=== PATIENT | female | born 1970 | race African-American/Black ===

== ENCOUNTER 2017-06-13 21:49 | Emergency (ER) | payer OTHER ==
[2017-06-13 21:57] VITALS: BP 110/79; PULSE 98; TEMP 98.2; BMI 34.0
--- NOTE | 2017-06-13 22:20 | PDOC ---
History of Present Illness - General Chief Complaint: Sore Throat Stated Complaint: ITCHY THROAT/RINGING IN EAR Time Seen by Provider: 06/13/17 22:06 History Source: Patient - History of Present Illness Timing/Duration: reports: other Associated Symptoms: denies: cough, fever/chills, nasal congestion, nasal drainage, sore throat Past History - Past Medical History Allergies/Adverse Reactions: Allergies Allergy/AdvReac Type Severity Reaction Status Date / Time No Known Allergies Allergy Verified 06/13/17 21:57 Home Medications: Ambulatory Orders NK [No Known Home Medication] 06/13/17 Other medical history: denies - Suicide/Smoking/Psychosocial Hx Smoking Status: No Smoking History: Never smoked Number of Cigarettes Smoked Daily: 0 Hx Alcohol Use: Yes (OCCASIONALLY) Substance Use Type: None Review of Systems - Review of Systems Constitutional: No: Chills, Fever HEENTM: Yes: Nose Congestion. No: Throat Pain Respiratory: No: Cough *Physical Exam - Vital Signs Last Vital Signs Temp Pulse Resp BP Pulse Ox 98.2 F 98 H 18 110/79 98 06/13/17 21:54 06/13/17 21:54 06/13/17 21:54 06/13/17 21:54 06/13/17 21:54 - Physical Exam General Appearance: Yes: Appropriately Dressed. No: Apparent Distress HEENT: positive: EOMI, Normal ENT Inspection, Normal Voice, TMs Normal, Pharynx Normal. negative: Scleral Icterus (R), Scleral Icterus (L) Neck: positive: Supple Respiratory/Chest: negative: Respiratory Distress Integumentary: positive: Dry, Warm Neurologic: positive: Fully Oriented, Alert, Normal Mood/Affect Medical Decision Making - Medical Decision Making 06/13/17 22:21 47 yo F, no sig hx, p/w itching to throat and ears x several days w/ ?ringing to L ear. No congestion, cough, f/c. Pt well mariusz and stable w/ unremarkable exam. Unclear etiology of sxs, possibly allergic. Dc w/ benadryl and referral to ENT if sxs persist *DC/Admit/Observation/Transfer Diagnosis at time of Disposition: Throat discomfort - Discharge Dispostion Disposition: HOME Condition at time of disposition: Good - Referrals Referrals: Margarita Sepulveda MD [Primary Care Provider] - Servando Rodriguez MD [Staff Physician] - - Patient Instructions Additional Instructions: The source of your symptoms are unclear at this time as your exam was normal. Symptoms could be secondary to allergy. Take Benadryl as needed for itching and follow-up with Dr. Rodriguez of ENT if symptoms persist
== END 2017-06-13 22:18 | disposition home or self-care (01) ==
LOC: JERFT 21:49
DX: L29.8 Other pruritus (principal)
CPT/HCPCS: 99281-25

== ENCOUNTER 2017-11-09 13:13 | Emergency (ER) | payer OTHER ==
[2017-11-09 13:29] VITALS: BP 113/75; PULSE 74; TEMP 98.7; BMI 36.0
--- NOTE | 2017-11-09 14:02 | PDOC ---
History of Present Illness - General Chief Complaint: Cold Symptoms Stated Complaint: FLU Time Seen by Provider: 11/09/17 13:15 - History of Present Illness Initial Comments: 11/09/17 14:02 Chief complaint: Flu symptoms History of present illness: Flu symptoms for 2-3 days including sore throat, earache, nasal congestion, body aches. No fever/chills, chest pain, shortness of breath, abdominal pain, nausea, vomiting, or diarrhea Review of systems: As above Past medical history: No serious medical or surgical problems past or present. 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 Had the flu vaccine. No tobacco alcohol or nonprescription drugs. Family history noncontributory Physical exam: Alert and oriented well-developed well-nourished no acute distress cooperative Afebrile, vital signs normal HEENT mild nasal congestion, no discharge, ears and throat clear Neck supple without bruit mass or nodes Chest clear with full breath sounds bilaterally, no wheezes rales or rhonchi CV S1 and S2 normal without murmur rub or gallop Abdomen benign Skin clear, no rash, adequate turgor and wet mucous membranes Neurological intact Extremities no CCE Impression: Possible flu, attenuated by flu vaccine Plan: Tamiflu, rest, Tylenol or Motrin, recheck if symptoms worsen. Past History - Past Medical History Allergies/Adverse Reactions: Allergies Allergy/AdvReac Type Severity Reaction Status Date / Time No Known Allergies Allergy Verified 11/09/17 13:21 Home Medications: Ambulatory Orders Oseltamivir Phosphate [Tamiflu] 75 mg PO BID #10 capsule 11/09/17 COPD: No - Suicide/Smoking/Psychosocial Hx Smoking Status: No Smoking History: Never smoked Number of Cigarettes Smoked Daily: 0 Hx Alcohol Use: No Drug/Substance Use Hx: No Substance Use Type: None *Physical Exam - Vital Signs Last Vital Signs Temp Pulse Resp BP Pulse Ox 98.7 F 74 15 113/75 97 11/09/17 13:13 11/09/17 13:13 11/09/17 13:13 11/09/17 13:13 11/09/17 13:13 *DC/Admit/Observation/Transfer Diagnosis at time of Disposition: Viral URI - Discharge Dispostion Disposition: HOME Condition at time of disposition: Stable Admit: No - Prescriptions Prescriptions: Oseltamivir Phosphate [Tamiflu] 75 mg PO BID #10 capsule - Referrals Referrals: Margarita Sepulveda MD [Primary Care Provider] - 2 Days - Patient Instructions Printed Discharge Instructions: DI for Viral Upper Respiratory Infection -- Adult Additional Instructions: Rest, fluids, Tylenol or Advil. Return for recheck if symptoms worse, especially if there is high fever, chest pain, increase cough, or shortness of breath. Otherwise follow-up with primary physician. - Post Discharge Activity Forms/Work/School Notes: Back to Work
== END 2017-11-09 14:08 | disposition home or self-care (01) ==
LOC: FER 13:13
DX: J06.9 Acute upper respiratory infection, unspecified (principal)
CPT/HCPCS: 99282-25

== ENCOUNTER 2017-12-31 19:09 | Emergency (ER) | payer OTHER ==
--- NOTE | 2017-12-31 19:13 | PDOC ---
History of Present Illness - General History Source: Patient Exam Limitations: No Limitations - History of Present Illness Initial Comments: 12/31/17 19:34 A portion of this note was documented by scribe services under my direction. I have reviewed the details of the note, within reason, and agree with the documentation. The case summary and management plan written by me. Assessment and plan: This is a 47 her old female who comes in complaining of 2 days of sore throat. Patient denies any fevers, shortness of breath, cough, congestion or any other symptoms. Patient on exam has an exam that is consistent with a viral pharyngitis as it is no exudate lymphadenopathy or fevers. Patient reassured and told that all she needs a symptomatic relief and discharged home. <Bibiana Wells I - Last Filed: 12/31/17 19:34> - History of Present Illness Initial Comments: 12/31/17 19:48 The patient is a 47 year old female, with no significant past medical history, who presents to the emergency department with, approx 2 days of sore throat, body aches and non productive cough. The patient reports that two days ago she first noticed a bilateral ear discomfort described as a itchy sensation. The patient states that since yesterday she has had the non productive cough, sore throat and body aches. The patient states she visited her uncle recently who is currently sick. She denies recent fevers, chills, headache or dizziness. She denies recent nausea, vomit, diarrhea or constipation. She denies recent dysuria, frequency, urgency or hematuria. She denies recent chest pain or shortness of breath. PAST MEDICAL HISTORY: no significant history PAST SURGICAL HISTORY: no significant history FAMILY HISTORY: no pertinent history SOCIAL HISTORY: Pt lives with family and is employed. MEDICATIONS: reviewed ALLERGIES: As per nursing notes Review of Systems General: No fevers or chills, no weakness, no weight loss HEENT: +Sore throat. +Ear discomfort. No change in vision. CardioVascular: No chest pain or shortness of breath Respiratory: +Non productive cough. No wheezing. Gastrointestinal: no nausea, vomiting, diarrhea or constipation, No rectal bleeding Genitourinary: No dysuria, hematuria, or frequency Musculoskeletal: +Generalized body aches. No neck or back pain. Neurologic: No headache, vertigo, dizziness or loss of consciousness Psychiatric: nor depression Skin: No rashes or easy bruising Endocrine: no increased thirst or abnormal weight change Allergic: no skin or latex allergy All other systems reviewed and normal Physical Exam GENERAL: The patient is awake, alert, and fully oriented, in no acute distress. HEAD: Normal with no signs of trauma. EYES: Pupils equal, round and reactive to light, extraocular movements intact, sclera anicteric, conjunctiva clear. EAR: Tympanic membranes and external ear canals were normal. THROAT: +Mild erythema posterior oropharynx. No lymphadenopathy. No exudates. EXTREMITIES: Normal range of motion, no edema. NEUROLOGICAL: Normal speech, normal gait. PSYCH: Normal mood, normal affect. SKIN: Warm, Dry, normal turgor, no rashes or lesions noted. <Sean Small - Last Filed: 12/31/17 19:56> - General Chief Complaint: Sore Throat Stated Complaint: SORE THROAT Time Seen by Provider: 12/31/17 19:12 Past History - Past Medical History COPD: No - Suicide/Smoking/Psychosocial Hx Smoking Status: No Smoking History: Never smoked Number of Cigarettes Smoked Daily: 0 Hx Alcohol Use: No Drug/Substance Use Hx: No Substance Use Type: None <Bibiana Wells I - Last Filed: 12/31/17 19:34> <Sean Small - Last Filed: 12/31/17 19:56> - Past Medical History Allergies/Adverse Reactions: Allergies Allergy/AdvReac Type Severity Reaction Status Date / Time No Known Allergies Allergy Verified 11/09/17 13:21 Home Medications: Ambulatory Orders Oseltamivir Phosphate [Tamiflu] 75 mg PO BID #10 capsule 11/09/17 *Physical Exam - Vital Signs Last Vital Signs Temp Pulse Resp BP Pulse Ox 98.5 F 75 16 112/72 99 12/31/17 19:09 12/31/17 19:09 12/31/17 19:09 12/31/17 19:09 12/31/17 19:09 <Sean Small - Last Filed: 12/31/17 19:56> *DC/Admit/Observation/Transfer - Discharge Dispostion Admit: No <Bibiana Wells I - Last Filed: 12/31/17 19:34> - Attestations Scribe Attestion: 12/31/17 19:49 Documentation prepared by Saen Small, acting as medical receptionist biller for Bibiana Wells MD. <Sean Small - Last Filed: 12/31/17 19:56> Diagnosis at time of Disposition: Acute viral pharyngitis - Discharge Dispostion Disposition: HOME Condition at time of disposition: Stable - Referrals Referrals: Margarita Sepulveda MD [Primary Care Provider] - - Patient Instructions Printed Discharge Instructions: Viral Pharyngitis Additional Instructions: Tylenol or Motrin as needed for pain or discomfort. Your symptoms are caused by a virus and will run its course. Return to the emergency department immediately with ANY new, persistent or worsening symptoms. Continue any medications as previously prescribed by your physician. You should follow up with your primary doctor as soon as possible regarding today's emergency department visit. . Please make sure your doctor reviews the results of your emergency evaluation. Thank you for coming to the Emergency Department today for your care. It was a pleasure to see you today. Please note that your evaluation is INCOMPLETE until you follow-up with your doctor. - Post Discharge Activity
[2017-12-31 19:22] VITALS: BP 112/72; PULSE 75; TEMP 98.5; BMI 36.0
== END 2017-12-31 19:45 | disposition home or self-care (01) ==
LOC: FER 19:09
DX: J02.8 Acute pharyngitis due to other specified organisms (principal); B97.89 Other viral agents as the cause of diseases classified elsewhere
CPT/HCPCS: 99281-25

== ENCOUNTER 2018-07-29 12:58 | Emergency (ER) | payer OTHER ==
--- NOTE | 2018-07-29 13:24 | PDOC ---
History of Present Illness - General Stated Complaint: DIZZINESS Time Seen by Provider: 07/29/18 13:10 History Source: Patient - History of Present Illness Initial Comments: 07/29/18 15:42 The patient is a 48 year old female with no significant reported PMH who presents to the ED c/o 2 day h/o lightheadedness and associated headache. Headache is global, pressure like, c/w previous headaches. 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 Denies any associated chest pain, shortness of breath, palpitations, nausea. States the lightheadedness persisted and worsened when she was moving around especially bending over @ work. No previous similar episodes. Notes h/o seasonal allergies for which she has been taking OTC Sudafed. 10 point ROS is negative including abdominal pain, nausea/vomiting, diarrhea/ constipation, dysuria/hematuria, numbness/tingling. Allergy: Penicillin (rash) Surgical: none reported Social: denies toxic habits PMD: Dr. Margarita Sepulveda Past History - Past Medical History Allergies/Adverse Reactions: Allergies Allergy/AdvReac Type Severity Reaction Status Date / Time Penicillins Allergy Verified 05/25/18 21:23 Home Medications: Ambulatory Orders NK [No Known Home Medication] 07/29/18 COPD: No - Suicide/Smoking/Psychosocial Hx Smoking Status: No Smoking History: Never smoked Number of Cigarettes Smoked Daily: 0 Hx Alcohol Use: No Drug/Substance Use Hx: No Substance Use Type: None Review of Systems - Review of Systems Constitutional: No: Chills, Fever HEENTM: No: Blurred Vision, Double Vision Cardiac (ROS): Yes: Lightheadedness. No: Chest Pain ABD/GI: No: Constipated, Diarrhea, Nausea, Vomiting : No: Burning, Dysuria *Physical Exam - Physical Exam General Appearance: Yes: Nourished, Obese HEENT: positive: Normal Voice, Hearing Grossly Normal. negative: Sinus Tenderness, TM Bulging, TM Dull, TM Erythema Neck: positive: Trachea midline, Supple Respiratory/Chest: positive: Lungs Clear, Normal Breath Sounds Cardiovascular: positive: S1, S2. negative: Edema, JVD Vascular Pulses: Dorsalis-Pedis (R): 2+, Doralis-Pedis (L): 2+ Gastrointestinal/Abdominal: positive: Normal Bowel Sounds, Soft. negative: Distended, Guarding, Rebound, Hernia, Mass Extremity: positive: Normal Capillary Refill, Normal Inspection Integumentary: positive: Normal Color, Dry, Warm Neurologic: positive: song lyricist II-XII NML intact, Fully Oriented, Alert ED Treatment Course - LABORATORY CBC & Chemistry Diagram: 07/29/18 13:19 07/29/18 13:19 Medical Decision Making - Medical Decision Making 07/29/18 15:28 48 year old female with lightheadedness and headache. VS unremarkable. Afebrile, no neurologic deficits noted on PE, neck supple. Will give supportive care and check basic labs, urine . With refrain from head CT at this time as no concerning signs for SAH (headache c/w previous headaches ) or CVA (no neurologic deficit or complaints0. S/p Tylenol + IV hydration, patient symptomatically improved, ambulatory around unit, requesting PO intake and discharge. Will discharge home with return precautions, PMD-follow up. *DC/Admit/Observation/Transfer Diagnosis at time of Disposition: Lightheadedness - Discharge Dispostion Disposition: HOME Condition at time of disposition: Good Decision to Admit order: No - Referrals Referrals: Margarita Sepulveda MD [Primary Care Provider] - - Patient Instructions Additional Instructions: You were evaluated today for your head pressure and lightheadedness. All of your labs showed no concerning findings. Follow up with your primary care physician in the next 3 days. Return to the Emergency Department for any new/worsening/concerning symptoms. - Post Discharge Activity Forms/Work/School Notes: Back to Work
[2018-07-29] MEDS ORDERED: SODIUM CHLORIDE 0.9% 500 ML INFUS.BAG IV ONE (13:25)
[2018-07-29 13:28] VITALS: BP 114/87; PULSE 70; TEMP 98.1; BMI 36.2
[2018-07-29] MEDS ORDERED: ACETAMINOPHEN 1000 MG/100 ML VIAL (NON FORMULARY) IVPB ONE (13:40)
[2018-07-29 13:47] LABS: BASO % 0.9 % (0-2.0); EOS % 4.7 % (0-4.5); HEMATOCRIT 39.5 % (32.4-45.2); HEMOGLOBIN 13.5 GM/dL (10.7-15.3); LYMPH % 45.2 % (8-40); MCH 29.9 pg (25.7-33.7); MCHC 34.1 g/dl (32.0-36.0); MEAN CELL VOLUME 87.5 fl (80-96); MEAN PLT VOLUME 10.8 fl (7.5-11.1); MONO % 7.3 % (3.8-10.2); NEUT % 41.9 % (42.8-82.8); PLATELET COUNT 194 K/MM3 (134-434); RBC 4.52 M/mm3 (3.60-5.2); RDW 14.4 % (11.6-15.6); WHITE BLOOD COUNT 5.9 K/mm3 (4.0-10.0)
[2018-07-29 13:52] LABS: URINE APPEARANCE CLEAR; URINE BILIRUBIN NEGATIVE (<2.0 mg/dL); URINE COLOR STRAW; URINE GLUCOSE (UA) NEGATIVE (NEGATIVE); URINE KETONE NEGATIVE (NEGATIVE); URINE LEUK ESTERASE NEGATIVE (NEGATIVE); URINE NITRITE NEGATIVE (NEGATIVE); URINE PROTEIN NEGATIVE (NEGATIVE); URINE UROBILINOGEN NEGATIVE mg/dL (0.2-1.0)
[2018-07-29] MEDS ORDERED: ACETAMINOPHEN INJECTION 100 ML IVPB ONE (13:59)
[2018-07-29 14:08] LABS: ALBUMIN 3.6 g/dl (3.4-5.0); ALK PHOS 63 U/L (45-117); ANION GAP 5 MMOL/L (8-16); BILIRUBIN,TOTAL 0.3 mg/dL (0.2-1); BLOOD UREA NITROGEN 19 mg/dL (7-18); CALCIUM 9.2 mg/dL (8.5-10.1); CHLORIDE 109 mmol/L (98-107); CO2 28 mmol/L (21-32); CREATININE 0.9 mg/dL (0.55-1.3); GLUCOSE,RANDOM 90 mg/dL (74-106); POTASSIUM 4.4 mmol/L (3.5-5.1); SGOT/AST 12 U/L (15-37); SGPT/ALT 23 U/L (13-61); SODIUM 142 mmol/L (136-145); TOT PROT 7.8 g/dl (6.4-8.2)
--- NOTE | 2018-07-29 15:56 | PDOC ---
Attending Attestation - Resident Resident Name: Violet Nichole - ED Attending Attestation I have performed the following: I have examined & evaluated the patient, The case was reviewed & discussed with the resident, I agree w/resident's findings & plan - HPI HPI: 07/29/18 15:53 The patient is a 48 year old female with no significant past medical history who reports the emergency department with pressure like temporal headache and lightheadedness for 2 days. The patient denies any fall or injury. 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 no cough or congestion. She denies any fever, chills, nausea, vomiting, diarrhea, constipation, or urinary symptoms. She denies any chest pain, shortness of breath or dizziness. The patient denies any other complaints. - Physicial Exam PE: 07/29/18 15:54 NAD, well appearing, PERRL, EOMI, MMM, nl conjunctiva, anicteric; neck supple. lungs clear, RRR, abdomen soft nontender. ALEJANDRO x4, no focal neuro deficits. No peripheral edema. normal color for ethnicity, WWP. - Medical Decision Making 07/29/18 15:54 Plata, Lu 48 YOF with lightheadedness and headache. vitals wnl. no fever labs and lytes normal preg test neg. given tylenol and fluids, with improvement. well appearing, ambulatory. feels comfortable with DC doubt meningismus or SAH/CVA. no ct head indicated for most likely benign headache. continue with rest, hydration, OTC pain meds for MCMAHAN as needed. f/u primary doctor. reduce stressors or precipitants. work note to be provided. Pt to be discharged in stable condition. Patient and family made aware of impression and plan, return precautions discussed (including but not limited to worsening pain or symptoms), fevers, or signs of infection, chest pain, respiratory distress, inability to tolerate oral intake, dehydration, syncope, or neurologic changes). Follow up with PMD and/or specialist as recommended, follow up information provided, take medications as instructed for duration of time. continue with supportive care, avoid triggers and precipitants. All questions answered to patient's satisfaction and expressed understanding and comfort with this. 07/29/18 15:55
--- NOTE | 2018-07-30 11:45 | EKG ---
Test Reason : Blood Pressure : / mmHG Vent. Rate : 051 BPM Atrial Rate : 051 BPM P-R Int : 150 ms QRS Dur : 080 ms QT Int : 458 ms P-R-T Axes : 051 016 028 degrees QTc Int : 422 ms SINUS BRADYCARDIA LOW VOLTAGE QRS NO PREVIOUS ECGS AVAILABLE Confirmed by EDMUNDO CARPIO MD ([id number]) on 07/30/2018 11:44:50 AM Referred By: Confirmed By:EDMUNDO CARPIO MD
== END 2018-07-29 16:38 | disposition home or self-care (01) ==
LOC: JER 12:58
PROC: 3E033NZ Introduction of Analgesics, Hypnotics, Sedatives into Peripheral Vein, Percutaneous Approach (ICD-10-PCS; principal; 2018-07-29)
DX: R51 Headache (principal); R42 Dizziness and giddiness
CPT/HCPCS: 36415; 80053; 81003; 84703; 85025; 87086; 93005; 93010; 96374; 99283-25; J0131

== ENCOUNTER 2018-09-20 20:46 | Emergency (ER) | payer OTHER ==
[2018-09-20 21:04] VITALS: BP 118/80; PULSE 73; TEMP 97.8; BMI 35.5
--- NOTE | 2018-09-20 22:10 | PDOC ---
History of Present Illness - General Chief Complaint: Cold Symptoms Stated Complaint: Cold Symptoms Time Seen by Provider: 09/20/18 22:05 - History of Present Illness Initial Comments: 09/20/18 22:08 48-year-old female with cough times one week. Seen by her primary care physician balwinder nose with ALLERGIES she improved with Claritin and just started Mucinex for her cough which seems to be worse at night. She has no systemic symptoms. No fever chills night sweats or bodyaches. Past History - Past Medical History Allergies/Adverse Reactions: Allergies Allergy/AdvReac Type Severity Reaction Status Date / Time Penicillins Allergy Verified 05/25/18 21:23 Home Medications: Ambulatory Orders NK [No Known Home Medication] 07/29/18 COPD: No CHF: No Other medical history: denies - Immunization History Immunization Up to Date: Yes - Suicide/Smoking/Psychosocial Hx Smoking Status: No Smoking History: Never smoked Have you smoked in the past 12 months: No Number of Cigarettes Smoked Daily: 0 Information on smoking cessation initiated: No Hx Alcohol Use: No Drug/Substance Use Hx: No Substance Use Type: None Review of Systems - Review of Systems Constitutional: No: Chills, Diaphoresis, Fever, Malaise, Night Sweats, Weakness Respiratory: Yes: Cough *Physical Exam - Vital Signs Last Vital Signs Temp Pulse Resp BP Pulse Ox 97.8 F 73 20 118/80 99 09/20/18 21:02 09/20/18 21:02 09/20/18 21:02 09/20/18 21:02 09/20/18 21:02 - Physical Exam Comments: 09/20/18 22:09 HEAD: NC/AT EYES: Conjuntiva clear Ears: Canals and TM's normal NOSE: No d/c THROAT: Moist mucous membrances, oral pharanx clear, uvula midline NECK: Supple without adenopathy CARDIAC: S1 S2 LUNGS: CTA Full and Equal breath sounds ABDOMEN: Soft NT ND MS: Full ROM in all joints without edema NEUROLOGIC: No gross sensory or motor deficits, NVID SKIN: Normal color and temperature no lesions or rashes Moderate Sedation - Procedure Monitoring Vital Signs: Procedure Monitoring Vital Signs Temperature 97.8 F 09/20/18 21:02 Pulse Rate 73 09/20/18 21:02 Respiratory Rate 20 09/20/18 21:02 Blood Pressure 118/80 09/20/18 21:02 O2 Sat by Pulse Oximetry (%) 99 09/20/18 21:02 *DC/Admit/Observation/Transfer Diagnosis at time of Disposition: Allergic cough - Discharge Dispostion Disposition: HOME Condition at time of disposition: Stable Decision to Admit order: No - Referrals Referrals: Margarita Sepulveda MD [Primary Care Provider] - - Patient Instructions Additional Instructions: Continue with the Claritin and Mucinex as directed by your physician. Return to the emergency room should symptoms worsen or go unresolved. Follow-up with your PCP in one to 2 days for further evaluation and treatment options. - Post Discharge Activity
== END 2018-09-20 22:12 | disposition home or self-care (01) ==
LOC: JERFT 20:46
DX: R05 Cough (principal)
CPT/HCPCS: 99281-25

== ENCOUNTER 2019-06-05 12:53 | Emergency (ER) | payer OTHER | END 2019-06-05 13:38 | disposition home or self-care (01) | LOC: FER 12:53 ==

== ENCOUNTER 2019-08-08 13:51 | Emergency (ER) | payer OTHER ==
[2019-08-08 13:56] VITALS: BP 119/81; PULSE 85; TEMP 98.4; BMI 37.8
--- NOTE | 2019-08-08 15:20 | PDOC ---
History of Present Illness - General Chief Complaint: Itching Stated Complaint: RIGHT ARM ITCHING Time Seen by Provider: 08/08/19 14:01 - History of Present Illness Initial Comments: 08/08/19 15:21 49-year-old female with no significant past medical history presents to the emergency department with a rash to her righr arm and right chest since yesterday. Patient reports the rash is located on the inside of her arm close to her elbow, and then skips over to the right side of her chest. She reports the rash initially was itchy, but now is slightly burning in nature. She denies any blisters forming over the rash, states it is mostly just red and warm. She denies any new exposures. She denies any fevers or chills. She did have chickenpox as a child. She otherwise denies any headaches, dizziness, focal weakness or numbness, blurry vision, chest pain, shortness of breath, abdominal pain, nausea, vomiting , diarrhea, lower extremity edema. Patient states there is no chance she is . Past History - Past Medical History Allergies/Adverse Reactions: Allergies Allergy/AdvReac Type Severity Reaction Status Date / Time Penicillins Allergy Severe Difficulty Verified 08/08/19 13:52 Breathing Home Medications: Ambulatory Orders Valacyclovir HCl [Valtrex -] 1,000 mg PO TID #21 tablet 08/08/19 COPD: No CHF: No Diabetes: No - Immunization History Immunization Up to Date: Yes - Psycho Social/Smoking Cessation Hx Smoking Status: No Smoking History: Never smoked Have you smoked in the past 12 months: No Number of Cigarettes Smoked Daily: 0 Hx Alcohol Use: Yes (SOCIAL) Drug/Substance Use Hx: No Substance Use Type: None Review of Systems - Review of Systems Comments:: 08/08/19 15:24 GENERAL/CONSTITUTIONAL: No fever or chills. No weakness. HEAD, EYES, EARS, NOSE AND THROAT: No change in vision. No ear pain or discharge. No sore throat. GASTROINTESTINAL: No nausea, vomiting, diarrhea or constipation. GENITOURINARY: No dysuria, frequency, or change in urination. CARDIOVASCULAR: No chest pain or shortness of breath. RESPIRATORY: No cough, wheezing, or hemoptysis. MUSCULOSKELETAL: No joint or muscle swelling or pain. No neck or back pain. SKIN: +rash NEUROLOGIC: No headache, vertigo, loss of consciousness, or change in strength/ sensation. ENDOCRINE: No increased thirst. No abnormal weight change. HEMATOLOGIC/LYMPHATIC: No anemia, easy bleeding, or history of blood clots. ALLERGIC/IMMUNOLOGIC: No hives or skin allergy. *Physical Exam - Vital Signs Last Vital Signs Temp Pulse Resp BP Pulse Ox 98.4 F 85 16 119/81 100 08/08/19 13:52 08/08/19 13:52 08/08/19 13:52 08/08/19 13:52 08/08/19 13:52 - Physical Exam Comments: 08/08/19 15:24 GENERAL: Awake, alert, and fully oriented, in no acute distress EYES: PERRLA, EOMI, sclera anicteric, conjunctiva clear ENT: Nares patent, oropharynx clear without exudates. Moist mucosa NECK: Normal ROM, supple, no lymphadenopathy, JVD, or masses LUNGS: Breath sounds equal, clear to auscultation bilaterally. No wheezes, and no crackles HEART: Regular rate and rhythm, normal S1 and S2, no murmurs, rubs or gallops ABDOMEN: Soft, nontender, normoactive bowel sounds. No guarding, no rebound. No masses EXTREMITIES: Normal range of motion, no edema. No cords, erythema, or tenderness NEUROLOGICAL: Normal speech, cranial nerves intact, equal strength and sensation b/l SKIN: R medial distal arm with 2 large, erythematous, mildly indurated, tender patches with no vesicles. On R chest, small, erythematous indurated patch with ? tiny vesicles x3. Patches are all in the T1 dermatomal distribution. Medical Decision Making - Medical Decision Making 08/08/19 15:28 49yo F presents to the ED with rash to RUE and R chest Distribution and pt's complaint of burning pain are more consistent with herpes zoster, however, the rash does not have the classic appearance as there are no obvious vesicles. It may be too early for vesicles however. Rash is less likely cellulitis, as patches are not contiguous and are in a dermatomal distribution. She has no systemic signs of infection. Will treat pt with Valtrex 1000mg TID (she has no hx renal pathology) I explained to pt the possible evolution of the rash over the next few days - development of blister, etc and provided anticipatory guidance. Pt advised to f/u with PMD in 1-2 days to see the evolution of the rash, or she can return here in 48hrs if she is unable to see her PMD I discussed the physical exam findings and final diagnoses with the patient. I answered all of the patient's questions. The patient was satisfied with the care received and felt comfortable with the discharge plan and treatment plan. The patient will call their primary care physician within 24 hours to arrange follow-up and will return to the Emergency Department with any new, persistent or worsening symptoms. 08/08/19 15:43 I was informed by the nurse that as he was discharging the patient, she was unhappy that we did not check any blood work and that we should not diagnose something by just looking at it. I went to go discuss the latter with the patient, however she was already gone from the emergency department. She had not expressed these concerns to me before hand. I called her listed number, no answer. 08/10/19 19:38 Called pt to f/u, reports rash has completely resolved Saw her PMD today who advised her to continue course of Valtrex to completion Pt feeling well, will return if any new, recurring or concerning symptoms Very appreciative of call back Discharge - Discharge Information Problems reviewed: Yes Clinical Impression/Diagnosis: Herpes zoster, Rash Condition: Stable Disposition: HOME - Admission No - Additional Discharge Information Prescriptions: Valacyclovir HCl [Valtrex -] 1,000 mg PO TID #21 tablet - Follow up/Referral Referrals: Winsome Pathak NP [Primary Care Provider] - - Patient Discharge Instructions Patient Printed Discharge Instructions: DI for Rash Additional Instructions: Your rash is most likely due to shingles, but since it does not have the classic appearance, make sure to follow-up with your primary care doctor in 1 to 2 days for reevaluation. If you are unable to follow-up with your doctor, you may return to the emergency department in 48 hours. Take the medication as prescribed, fill it immediately upon discharge from the emergency department as the sooner you take it, the better that it works. Return to the emergency department if you have any new, worsening or concerning symptoms. - Post Discharge Activity
== END 2019-08-08 15:38 | disposition home or self-care (01) ==
LOC: FER 13:51
DX: B02.9 Zoster without complications (principal); R21 Rash and other nonspecific skin eruption; Z88.0 Allergy status to penicillin
CPT/HCPCS: 99281-25

== ENCOUNTER 2019-09-20 08:30 | Emergency (ER) | payer OTHER ==
[2019-09-20 08:37] VITALS: BP 122/67; PULSE 90; TEMP 98.9; BMI 36.0
--- NOTE | 2019-09-20 08:46 | PDOC ---
History of Present Illness - General Chief Complaint: Cold Symptoms Stated Complaint: BODYACHE Time Seen by Provider: 09/20/19 08:45 History Source: Patient - History of Present Illness Initial Comments: 09/20/19 08:56 49-year-old female complaining of subjective fever, body aches, cough, nasal congestion, right ear pain for the last 3 days. 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 Several other coworkers who has been with flulike symptoms. Patient reports no flu vaccine this season. Denies nausea, vomiting, abdominal pain, diarrhea, urinary symptoms. Past History - Past Medical History Allergies/Adverse Reactions: Allergies Allergy/AdvReac Type Severity Reaction Status Date / Time Penicillins Allergy Severe Difficulty Verified 09/20/19 08:33 Breathing Home Medications: Ambulatory Orders Valacyclovir HCl [Valtrex -] 1,000 mg PO TID #21 tablet 08/08/19 Benzonatate [Tessalon Pearls -] 100 mg PO TID PRN #21 capsule 09/20/19 Ibuprofen 600 mg PO QID PRN #20 tablet 09/20/19 Ofloxacin Otic [Floxin Otic -] 10 drop OT BID #1 bottle 09/20/19 COPD: No CHF: No Diabetes: No - Immunization History Immunization Up to Date: Yes - Psycho Social/Smoking Cessation Hx Smoking Status: No Smoking History: Never smoked Have you smoked in the past 12 months: No Number of Cigarettes Smoked Daily: 0 Information on smoking cessation initiated: No Hx Alcohol Use: No Drug/Substance Use Hx: No Substance Use Type: None Review of Systems - Review of Systems Able to Perform ROS?: Yes Is the patient limited Pakistani proficient: No Constitutional: Yes: Fever HEENTM: Yes: Ear Pain, Nose Congestion Respiratory: Yes: Cough Cardiac (ROS): No: Symptoms Reported, See HPI, Chest Pain, Edema, Irregular Heart Rate, Lightheadedness, Palpitations, Syncope, Chest Tightness, Other ABD/GI: No: Symptoms Reported, See HPI, Abdominal Distended, Abd. Pain w/ defecation, Blood Streaked Bowels, Constipated, Diarrhea, Difficulty Swallowing , Nausea, Poor Appetite, Poor Fluid Intake, Rectal Bleeding, Vomiting, Indigestion, Abdominal cramping, Tarry Stools, Other *Physical Exam - Vital Signs Last Vital Signs Temp Pulse Resp BP Pulse Ox 98.9 F 90 17 122/67 96 09/20/19 08:33 09/20/19 08:33 09/20/19 08:33 09/20/19 08:33 09/20/19 08:33 - Physical Exam General Appearance: Yes: Appropriately Dressed HEENT: positive: Pharynx Normal, Nasal Congestion, TM Erythema (right TM mild erythema with effusion) Respiratory/Chest: positive: Lungs Clear, Normal Breath Sounds Cardiovascular: positive: Regular Rhythm, Regular Rate Gastrointestinal/Abdominal: positive: Normal Bowel Sounds, Soft. negative: Tender Extremity: positive: Normal Capillary Refill, Normal Inspection, Normal Range of Motion Integumentary: positive: Normal Color, Dry, Warm ED Progress Note - Progress Note Progress Note: 09/20/19 08:59 A: flu like symptoms; right otitis media P: influenza likely will not treat. 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 Discharge - Discharge Information Problems reviewed: Yes Clinical Impression/Diagnosis: Flu-like symptoms Right otitis media Qualifiers: Otitis media type: suppurative Chronicity: acute Recurrence: non-recurrent Spontaneous tympanic membrane rupture: without spontaneous rupture Qualified Code(s): H66.001 - Acute suppurative otitis media without spontaneous rupture of ear drum, right ear Disposition: HOME - Additional Discharge Information Prescriptions: Benzonatate [Tessalon Pearls -] 100 mg PO TID PRN #21 capsule PRN Reason: Cough Ibuprofen 600 mg PO QID PRN #20 tablet PRN Reason: Pain Ofloxacin Otic [Floxin Otic -] 10 drop OT BID #1 bottle - Follow up/Referral Referrals: Margarita Sepulveda MD [Primary Care Provider] - - Patient Discharge Instructions Patient Printed Discharge Instructions: DI for Common Cold Additional Instructions: drink plenty of fluids Gargle with warm salty water Drink warm liquids Take ibuprofen every 6 hours as needed for pain or fever 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
[2019-09-20] MEDS ORDERED: IBUPROFEN 600 MG TABLET (FP) PO ONE ×2 (08:53→08:58)
== END 2019-09-20 09:53 | disposition home or self-care (01) ==
LOC: JER 08:30 → JERFT 08:30
DX: J11.1 Influenza due to unidentified influenza virus with other respiratory manifestations (principal); H66.001 Acute suppurative otitis media without spontaneous rupture of ear drum, right ear; Z88.0 Allergy status to penicillin
CPT/HCPCS: 71046-TC-FY; 87804; 99281-25

== ENCOUNTER 2019-10-17 08:51 | Emergency (ER) | payer OTHER ==
[2019-10-17 09:07] VITALS: BP 122/78; PULSE 66; TEMP 98.3; BMI 36.0
[2019-10-17] MEDS ORDERED: IBUPROFEN 600 MG TABLET (FP) PO ONE ×2 (10:08→10:12)
--- NOTE | 2019-10-17 10:15 | PDOC ---
History of Present Illness - General Chief Complaint: Cold Symptoms Stated Complaint: RT. EAR PAIN/ SORE THROAT Time Seen by Provider: 10/17/19 09:20 History Source: Patient Exam Limitations: No Limitations - History of Present Illness Initial Comments: 10/17/19 10:10 49-year-old female denies past medical history presents complaining of right ear pain, nasal congestion and itchy throat for the past 5 days. Denies body aches, cough, fever, chills, nausea, chest pain, shortness of breath, abdominal pain or any other complaint. Has not taken any medication for the symptoms. States that she works at a [employer] facility. ROS: GENERAL/CONSTITUTIONAL: No fever, chills, weakness, dizziness HEAD, EYES, EARS, NOSE AND THROAT: Right ear pain, itchy throat, nasal congestion, no changes in vision, No throat pain CARDIOVASCULAR: No chest pain RESPIRATORY: No shortness of breath or cough GASTROINTESTINAL: No pain, nausea, vomiting, diarrhea or constipation GENITOURINARY: No dysuria MUSCULOSKELETAL: No neck or back pain SKIN: No rash NEUROLOGIC: No headache, vertigo, loss of consciousness, or loss of sensation PE: GENERAL: well-appearing, NAD HEAD: NCAT EYES: Pupils equal, round and reactive to light, sclera anicteric, conjunctiva clear ENT: Bilateral normal ear canal, and normal TM's, pharynx: no erythema, no exudate, uvula midline NECK: supple, no lymphadenopathy CHEST: nontender RESP: clear, no w/r/r CARDIO: rrr, no m/g/r ABD: +BS, soft, nontender, non distended BACK: no midline spinal ttp, no CVAT EXTREMITIES: Normal range of motion, no edema NEUROLOGICAL: Normal speech, normal gait SKIN: Warm, Dry Past History - Past Medical History Allergies/Adverse Reactions: Allergies Allergy/AdvReac Type Severity Reaction Status Date / Time Penicillins Allergy Severe Difficulty Verified 10/17/19 09:02 Breathing Home Medications: Ambulatory Orders Valacyclovir HCl [Valtrex -] 1,000 mg PO TID #21 tablet 08/08/19 Benzonatate [Tessalon Pearls -] 100 mg PO TID PRN #21 capsule 09/20/19 Ibuprofen 600 mg PO QID PRN #20 tablet 09/20/19 Ofloxacin Otic [Floxin Otic -] 10 drop OT BID #1 bottle 09/20/19 COPD: No CHF: No Diabetes: No - Immunization History Immunization Up to Date: Yes - Psycho Social/Smoking Cessation Hx Smoking Status: No Smoking History: Never smoked Have you smoked in the past 12 months: No Number of Cigarettes Smoked Daily: 0 Hx Alcohol Use: Yes Drug/Substance Use Hx: No Substance Use Type: None *Physical Exam - Vital Signs Last Vital Signs Temp Pulse Resp BP Pulse Ox 98.3 F 66 18 122/78 100 10/17/19 09:02 10/17/19 09:02 10/17/19 09:02 10/17/19 09:02 10/17/19 09:02 Medical Decision Making - Medical Decision Making 10/17/19 10:12 49-year-old healthy female with viral illness x5 days. P.o. ibuprofen Supportive care discussed Note for work provided Advised to follow-up with PMD Discharge - Discharge Information Problems reviewed: Yes Clinical Impression/Diagnosis: Viral illness Condition: Stable Disposition: HOME - Admission No - Follow up/Referral Referrals: Winsome Pathak NP [Primary Care Provider] - - Patient Discharge Instructions Additional Instructions: Alternate between acetaminophen and ibuprofen every 6 hours as needed Follow-up with your primary care doctor Rest, remain hydrated Return to ED if worsening symptoms - Post Discharge Activity Work/Back to School Note: Back to Work
== END 2019-10-17 10:18 | disposition home or self-care (01) ==
LOC: JERFT 08:51
DX: B34.9 Viral infection, unspecified (principal); Z88.0 Allergy status to penicillin
CPT/HCPCS: 99281-25